=== PATIENT | female | born 1960 | race African-American/Black ===

== ENCOUNTER 2025-02-14 01:51 | Inpatient (IN) | payer MEDICARE, MEDICAID ==
[~2025-02-14] VITALS: Ht 170.2 cm; Wt 113.4 kg
[2025-02-14] MEDS: ONDANSETRON HCL 4MG/2ML INJ IV STA (03:39)
[2025-02-14] MEDS: KETOROLAC 30MG/ML VIAL IV STA (03:39)
[2025-02-14 03:52] LABS: BASOPHILS % 0.4 % (0.0-2.0); EOSINOPHILS % 0.8 % (0.0-5.0); HEMATOCRIT. 37.7 % (36.0-48.0); HEMOGLOBIN. 12.2 g/dL (12.0-16.0); LYMPHOCYTES % 28.6 % (20.0-50.0); MEAN PLATELET VOLUME 7.7 fl (7.4-10.4); MONOCYTES % 9.4 % (2.0-8.0); NEUTROPHILS % 60.8 % (40.0-76.0); PLATELET 276 x1000/uL (130-400); RED BLOOD CELL COUNT 4.55 mill/uL (4.2-5.4); RED CELL DISTRIBUTION WIDTH 16.6 % (11.6-14.6)
[2025-02-14 04:07] LABS: CREATININE 0.9 mg/dL (0.6-1.0); UREA NITROGEN BLOOD 13 mg/dL (9-23)
[2025-02-14 04:08] LABS: TROPONIN I HIGH SENSITIVITY < 4 ng/L (3.0-34)
[2025-02-14] MEDS: MORPHINE SULFATE 2 MG/ML INJ (NOT FOR IM USE) IV PRN (05:08)
[2025-02-14 08:00] VITALS: BP 116/64; PULSE 89; RESP 19; TEMP 36.4; O2SAT 94
[2025-02-14] MEDS ORDERED: NALOXONE HCL 0.4MG/ML VIAL IV PRN (09:30)
[2025-02-14] MEDS ORDERED: ONDANSETRON HCL 4MG/2ML INJ IV PRN (09:30)
[2025-02-14 10:51] VITALS: BP 115/49; PULSE 51; RESP 16; TEMP 36.7
[2025-02-14] MEDS: HYDROCODONE/ACETAMINOPHEN 5/325MG TABLET PO PRN (11:04)
[2025-02-14 12:00] VITALS: BP 114/54; PULSE 51; RESP 19; TEMP 36.2; O2SAT 96
[2025-02-14] MEDS: ENOXAPARIN 40MG/0.4ML SYR SUBCUT SCH (13:17)
[2025-02-14 16:00] VITALS: BP 104/46; PULSE 54; RESP 17; TEMP 36.5; O2SAT 99
[2025-02-14 16:15] LABS: HEPATITIS C AB NON REACTIVE (Neg) (Negative)
[2025-02-14] MEDS ORDERED: ENOXAPARIN 30MG/0.3ML SYR SUBCUT SCH (18:00)
[2025-02-14 18:41] LABS: CLARITY URINE CLEAR (CLEAR); COLOR URINE YELLOW (YELLOW); GLUCOSE URINE NEGATIVE (NEGATIVE); KETONES URINE NEGATIVE (NEGATIVE); LEUKOCYTE ESTERASE URINE NEGATIVE (NEGATIVE); NITRITE URINE NEGATIVE (NEGATIVE); OCCULT BLOOD URINE 1+ (NEGATIVE); PH URINE 5.5 (4.5-8.0); PROTEIN URINE NEGATIVE (NEGATIVE); SPECIFIC GRAVITY URINE 1.026 (1.005-1.030); UROBILINOGEN URINE 0.2 E.U./dL (0.2-1.0)
[2025-02-14 18:48] LABS: BACTERIA URINE 1+; RBC URINE 0-2 /hpf (0-2); SQUAMOUS EPITHELIAL CELL URINE 2+ /lpf (RARE/1+); WBC URINE 0-2 /hpf (0-2)
[2025-02-14 20:00] VITALS: BP 107/57; PULSE 56; RESP 18; TEMP 35.9; O2SAT 99
[2025-02-14] MEDS: ENOXAPARIN 30MG/0.3ML SYR SUBCUT SCH (21:34)
[2025-02-15] VITALS: BP 108/51; PULSE 60; RESP 18; TEMP 35.6; O2SAT 96
[2025-02-15 04:00] VITALS: BP 106/56; PULSE 60; RESP 18; TEMP 36.4; O2SAT 98
[2025-02-15 08:00] VITALS: BP 133/75; PULSE 60; RESP 18; TEMP 36.3; O2SAT 97
[2025-02-15 12:00] VITALS: BP 117/49; PULSE 54; RESP 12; TEMP 36.4; O2SAT 100
[2025-02-15 16:00] VITALS: BP 111/53; PULSE 59; RESP 16; TEMP 36.3; O2SAT 97
[2025-02-15 20:00] VITALS: BP 120/60; PULSE 62; RESP 18; TEMP 36.4; O2SAT 98
[2025-02-16] VITALS: BP 115/47; PULSE 64; RESP 18; TEMP 36.5; O2SAT 96
[2025-02-16 04:00] VITALS: BP 118/46; PULSE 76; RESP 18; TEMP 36.3; O2SAT 99
[2025-02-16 08:00] VITALS: BP 128/43; PULSE 56; RESP 17; TEMP 36.1; O2SAT 96
[2025-02-16 12:00] VITALS: BP 152/87; PULSE 65; RESP 20; TEMP 36.3; O2SAT 99
[2025-02-16] MEDS: HYDRALAZINE 20MG/ML VIAL IV PRN (12:56)
[2025-02-16 13:13] VITALS: BP 152/87; PULSE 65; TEMP 97.4; O2SAT 99
== END 2025-02-16 13:35 | disposition home or self-care (01) | DRG 914 ==
LOC: ER 01:51 → EDBEDREQ 02:36 → 5WST 04:16 → EDBEDREQ 04:19 → ENRESERV 04:54 → CANRESERV 04:54 → EDBEDREQSVC 05:20 → ENRESERV 06:34
PROVIDERS: ADMIT Internal Medicine; ATTEND Internal Medicine
DX: S09.90XA Unspecified injury of head, initial encounter (principal); M47.816 Spondylosis without myelopathy or radiculopathy, lumbar region; W06.XXXA Fall from bed, initial encounter; I10 Essential (primary) hypertension; E66.812 Obesity, class 2; G89.29 Other chronic pain; R53.81 Other malaise; F17.200 Nicotine dependence, unspecified, uncomplicated; M25.551 Pain in right hip; Z68.39 Body mass index [BMI] 39.0-39.9, adult; Y93.89 Activity, other specified; Y92.89 Other specified places as the place of occurrence of the external cause; Y99.8 Other external cause status; Z88.0 Allergy status to penicillin
CPT/HCPCS: 36415; 71045; 72100; 72192; 73523; 80048; 81003; 84484; 85025; 86705; 87340; 93005; 97161; 99285; A4606; J0360; J1650; J1885; J2270; J2405